=== PATIENT | male | born 1975 | race Caucasian/White ===

== ENCOUNTER 2023-07-04 21:06 | Emergency (ER) | payer MEDICAID ==
[~2023-07-04] VITALS: Ht 182.9 cm; Wt 74.8 kg
[2023-07-04] MEDS ORDERED: CIPR5DRO18 RIGHTEYE (21:24)
[2023-07-04 21:32] VITALS: BP 155/86; TEMP 98.1; O2SAT 98
== END 2023-07-04 21:33 | disposition home or self-care (01) ==
LOC: ER 21:09
DX: H10.9 Unspecified conjunctivitis (principal)